=== PATIENT | male | born 1990 | race Asian ===

== ENCOUNTER 2023-09-08 22:36 | Emergency (ER) | payer SELFPAY ==
[~2023-09-08] VITALS: Ht 175.3 cm; Wt 75.8 kg
[2023-09-08 22:43] VITALS: TEMP 99.5
[2023-09-08 23:18] LABS: BILIRUBIN,URINE NEGATIVE (Neg); CLARITY,URINE SLIGHTLY CLOUDY (Clear); COLOR,URINE YELLOW (Yellow); GLUCOSE, URINE NEGATIVE (Neg); KETONES,URINE 15 mg/dl (Neg); LEUKOCYTE ESTERASE ,URINE SMALL (Neg); NITRITES, URINE NEGATIVE (Neg); OCCULT BLOOD,URINE TRACE-INTACT (Neg); PH,URINE 5.5 (4.8-8.0); PROTEIN,URINE NEGATIVE (Neg); UROBILINOGEN,URINE 0.2 E.U/dL (0.2-1.0)
[2023-09-08 23:22] LABS: UA COLLECTION TYPE CLN CATCH MIDSTREAM
[2023-09-08 23:27] LABS: WBC,URINE 50-100 /HPF (0-4)
[2023-09-08 23:28] LABS: BACTERIA,URINE FEW /HPF (Neg); MUCUS STRANDS FEW /LPF (Neg); SQUAMOUS EPITHELIAL CELL,UR FEW /LPF (FEW)
[2023-09-08] MEDS ORDERED: DOXYCYCLINE 100MG CAPSULE PO STA (23:32)
[2023-09-08] MEDS ORDERED: azithromycin 250mg tablet PO ONE (23:35)
[2023-09-08] MEDS ORDERED: DOXY-1 PO (23:46)
[2023-09-09 00:44] VITALS: BP 136/85; PULSE 86; RESP 16; O2SAT 98
== END 2023-09-09 01:45 | disposition home or self-care (01) ==
LOC: ER 22:37
DX: N45.1 Epididymitis (principal); N43.3 Hydrocele, unspecified; N39.0 Urinary tract infection, site not specified; R53.83 Other fatigue; R35.0 Frequency of micturition; Z79.2 Long term (current) use of antibiotics
CPT/HCPCS: 36415; 76870; 81001; 87088; 87491; 93976; 99284